=== PATIENT | female | born 1985 | race Caucasian/White ===

== ENCOUNTER 2018-11-23 09:54 | Emergency (ER) | payer OTHER, SELFPAY ==
[2018-11-23 10:19] VITALS: BP 131/77; PULSE 81; RESP 20; TEMP 37; O2SAT 99
--- NOTE | 2018-11-23 10:48 | DI.US.S_ITS ---
PROCEDURE: US PELVIC COMPLETE INDICATIONS: bleeding, cramping TECHNIQUE: Real-time scanning was performed of the pelvic organs, with image documentation. Additional endovaginal scanning was necessary due to incomplete visualization of the adnexal and endometrial structures by transabdominal scanning. COMPARISON: None. FINDINGS: Transabdominal scanning: Limited scanning through the kidneys shows no hydronephrosis. No pathologic free abdominal or pelvic fluid. Endovaginal scanning: Uterus: Uterus is normal in size at 9.3 x 3.7 x 4.7 cm. The endometrium measures 7 mm in combined thickness. Ovaries: The right ovary is enlarged measuring 9.3 x 8.4 x 9.3 cm. Within the right ovary, there is a large simple appearing cyst that measures up to 8.2 cm. The left ovary is only seen transabdominally and measures 3 x 2.4 x 3.1 cm. No significant left ovarian abnormality can be seen. IMPRESSION: Large simple appearing right ovarian cyst that measures up to 8.2 cm. At clinical discretion, a followup pelvic ultrasound is suggested in 6 weeks to assure resolution/ improvement. Note: Concordant preliminary findings given by the bellman driver upon the completion of the examination to Dr. Girard at 11:30 AM [place] time on November 23, 2018. Dictated by: Leonard Winter M.D. on 11/23/2018 at 11:11 Approved by: Leonard Winter M.D. on 11/23/2018 at 11:13
--- NOTE | 2018-11-23 10:51 | ED.FEMALEGU ---
HPI - Female Genitourinary General Chief complaint: Urogenital-Female Stated complaint: VAGINAL BLEEDING Time Seen by Provider: 11/23/18 10:16 Source: patient and family Mode of arrival: ambulatory Limitations: no limitations History of Present Illness HPI Narrative: 33-year-old nonsmoking female presents with her and a chief complaint of heavy vaginal bleeding over the past few days. She has a history of PCOS and has had trouble off and on with vaginal bleeding but never quite this heavy. Patient had her last normal menses on November 01 and it ended on the . She started vaginal bleeding again on November 11 and has not let up. For the past 2 days the bleeding has been intensified and associated with pelvic cramping. She is bleeding through multiple pads and tampons per day. She is not dizzy nor weak or lightheaded. She denies fever or chills. She has had no nausea or vomiting. MD Complaint: vaginal bleeding Onset (ago): week(s) Location: suprapubic Severity: severe Quality: Aching and Cramping Duration: constant Relieving factors: none Exacerbating factors: none Vaginal discharge: blood, dark blood and blood clots Patient : No Related Data Home Medications Medication Instructions Recorded Confirmed metformin 500 mg PO BID 11/23/18 11/23/18 Previous Rx's Medication Instructions Recorded medroxyprogesterone See Label Instructions .ROUTE 11/23/18 .COMPLEX #100 tab Allergies Allergy/AdvReac Type Severity Reaction Status Date / Time No Known Drug Allergies Allergy Verified 11/23/18 10:34 Review of Systems Constitutional Denies chills, Denies fever(s), Denies lethargy and Denies weakness Eyes Denies change in vision, Denies eye discharge, Denies irritation and Denies loss of vision ENT Ears, Nose, Mouth, and Throat: Denies change in voice, Denies neck pain and Denies sore throat Cardiovascular Denies chest pain, Denies irregular heart rhythm, Denies lightheadedness, Denies palpitations, Denies dyspnea, Denies dyspnea on exertion and Denies orthopnea Respiratory Denies cough, Denies dyspnea, Denies dyspnea on exertion and Denies wheezing Gastrointestinal Gastrointestinal: Denies abdominal pain, Denies change in bowel habits, Denies diarrhea, Denies nausea and Denies vomiting Genitourinary Reports abnormal vaginal bleeding, Denies hematuria, Reports pelvic pain, Denies flank pain, Denies urinary incontinence and Denies urinary urgency Musculoskeletal Denies neck pain Integumentary/Breasts Denies pruritus, Denies erythema, Denies rash and Denies wounds Neurologic Denies confusion, Denies loss of vision and Denies weakness Psychiatric Denies anxiety, Denies confusion, Denies depression, Denies homicidal ideation and Denies suicidal ideation Endocrine Denies palpitations Hematologic/Lymphatic Denies easy bruising Allergic/Immunologic Denies wheezing PFSH Medical History PCOS (polycystic ovarian syndrome) (Acute) Social History Smoking Status: Never smoker Exam Narrative Exam Narrative: GENERAL: This is a well-nourished, well-developed patient, in mild distress. HEAD: Atraumatic. Normocephalic. No temporal or scalp tenderness. EYES: Pupils equal round and reactive. Extraocular motions intact. No scleral icterus. No injection or drainage. ENT: Nose without bleeding, purulent drainage or septal hematoma. Throat without erythema, tonsillar hypertrophy or exudate. Uvula midline. Airway patent. NECK: Trachea midline. No JVD or lymphadenopathy. Supple, nontender, no meningeal signs. CARDIOVASCULAR: Regular rate and rhythm without murmurs, gallops, or rubs. RESPIRATORY: Clear to auscultation. Breath sounds equal bilaterally. No wheezes, rales, or rhonchi. GASTROINTESTINAL: Abdomen soft, non-tender, nondistended. No hepato-splenomegaly, or palpable masses. No guarding. PELVIC: dark blood via closed cervical os. Minimal tenderness. Performed with patient's permission and female nursing cardiac cath technologist at bedside EXTREMITIES: No clubbing, cyanosis, or edema. No joint tenderness, effusion, or edema noted. BACK: Nontender without deformity or crepitance. No flank tenderness. NEURO: AOx3. SKIN: No rash or erythema. Initial Vital Signs Initial Vital Signs: Vital Signs Temperature 98.6 F 11/23/18 10:19 Pulse Rate 81 11/23/18 10:19 Respiratory Rate 20 11/23/18 10:19 Blood Pressure 131/77 11/23/18 10:19 Pulse Oximetry 99 11/23/18 10:19 Course Orders Ordered: ED Orders 11/23/18 10:48 US pelvic complete Stat 11/23/18 10:53 Test Urine Stat Urinalysis and Microscopic Stat 11/23/18 10:55 Basic Metabolic Panel Stat Complete Blood Count AUTO DIFF Stat Type and Screen Stat Sodium Chloride (Normal Saline 0.9%) 1,000 mls @ 150 mls/hr IV CONT CESAR Last Admin: 11/23/18 11:30 Dose: 150 mls/hr Consultations Consultation #1: call to OB. She recommends medroxyprogesterone and close follow up with her OB or our clinic to discuss options with ovarian cyst Time: 11:46 Vital Signs - 8 hr 11/23/18 10:19 11/23/18 11:00 Temperature 98.6 F Pulse Rate 81 84 Respiratory Rate 20 16 Blood Pressure [Left Arm] 131/77 130/87 Pulse Oximetry 99 100 MDM - Female Genitourinary Lab Data Attestation: I reviewed the patient's lab results. Result diagrams: 11/23/18 10:55 11/23/18 10:55 Lab Results 11/23/18 11/23/18 11/23/18 Range/Units 10:53 10:55 10:55 WBC 7.8 (4.5-11.0) X10^3/uL RBC 4.97 (4.0-5.2) X10^6/uL Hgb 14.0 (12.0-16.0) g/dL Hct 41.6 (36-46) % MCV 83.7 (80-100) fL MCH 28.2 (26-34) PG MCHC 33.8 (30-36) % RDW 13.6 (11.6-14.8) % Plt Count 348 (150-400) X10^3/uL Neut % (Auto) 63.4 (50-75) % Lymph % (Auto) 28.1 (25-40) % [place] % (Auto) 6.7 (3-14) % Eos % (Auto) 1.2 L (2-4) % Baso % (Auto) 0.6 (0-2) % Neut # (Auto) 5000 (5389-8128) /uL Lymph # (Auto) 2200 (2068-6835) /uL [place] # (Auto) 500 (0-900) /uL Eos # (Auto) 100 (0-450) /uL Baso # (Auto) 0 (0-100) /uL Sodium 141 (137-145) mmol/L Potassium 3.9 (3.4-5.1) mmol/L Chloride 105 (98-107) mmol/L Carbon Dioxide 27 (22-32) mmol/L BUN 8 (7-17) mg/dL Creatinine 0.80 (0.52-1.04) mg/dL Estimated GFR > 60.0 (>60) mL/min BUN/Creatinine Ratio 10.0 (6-22) Glucose 84 (70-100) mg/dL Calcium 9.1 (8.4-10.2) mg/dL Urine Test Negative (Negative) Blood Type Antibody Screen 11/23/18 Range/Units 10:55 WBC (4.5-11.0) X10^3/uL RBC (4.0-5.2) X10^6/uL Hgb (12.0-16.0) g/dL Hct (36-46) % MCV (80-100) fL MCH (26-34) PG MCHC (30-36) % RDW (11.6-14.8) % Plt Count (150-400) X10^3/uL Neut % (Auto) (50-75) % Lymph % (Auto) (25-40) % [place] % (Auto) (3-14) % Eos % (Auto) (2-4) % Baso % (Auto) (0-2) % Neut # (Auto) (9708-5681) /uL Lymph # (Auto) (0472-8133) /uL [place] # (Auto) (0-900) /uL Eos # (Auto) (0-450) /uL Baso # (Auto) (0-100) /uL Sodium (137-145) mmol/L Potassium (3.4-5.1) mmol/L Chloride (98-107) mmol/L Carbon Dioxide (22-32) mmol/L BUN (7-17) mg/dL Creatinine (0.52-1.04) mg/dL Estimated GFR (>60) mL/min BUN/Creatinine Ratio (6-22) Glucose (70-100) mg/dL Calcium (8.4-10.2) mg/dL Urine Test (Negative) Blood Type O Positive Antibody Screen Negative Imaging Data US - abdomen: Radiologist's impression: [address] [address] Ultrasound Report Signed Patient: LAURA RIVERA MR#: [id number] : 1985 Acct:[id number] Age/Sex: 33 / F Date of Service: 11/23/18 Loc: ED Accession Number: [id number] Procedure: US pelvic complete Ordering Provider: Fab Girard D.O. PROCEDURE: US PELVIC COMPLETE INDICATIONS: bleeding, cramping TECHNIQUE: Real-time scanning was performed of the pelvic organs, with image documentation. Additional endovaginal scanning was necessary due to incomplete visualization of the adnexal and endometrial structures by transabdominal scanning. COMPARISON: None. FINDINGS: Transabdominal scanning: Limited scanning through the kidneys shows no hydronephrosis. No pathologic free abdominal or pelvic fluid. Endovaginal scanning: Uterus: Uterus is normal in size at 9.3 x 3.7 x 4.7 cm. The endometrium measures 7 mm in combined thickness. Ovaries: The right ovary is enlarged measuring 9.3 x 8.4 x 9.3 cm. Within the right ovary, there is a large simple appearing cyst that measures up to 8.2 cm. The left ovary is only seen transabdominally and measures 3 x 2.4 x 3.1 cm. No significant left ovarian abnormality can be seen. IMPRESSION: Large simple appearing right ovarian cyst that measures up to 8.2 cm. At clinical discretion, a followup pelvic ultrasound is suggested in 6 weeks to assure resolution/ improvement. Note: Concordant preliminary findings given by the fulfillment coordinator upon the completion of the examination to Dr. Girard at 11:30 AM [place] time on November 23, 2018. Dictated by: Leonard Winter M.D. on 11/23/2018 at 11:11 Approved by: Leonard Winter M.D. on 11/23/2018 at 11:13 Discharge Plan Departure Patient Disposition: Home Clinical Impression: Menometrorrhagia, Dysmenorrhea Instructions: Heavy Menstrual Bleeding Activity Restrictions/Additional Instructions: *You have been diagnosed with [ heavy painful vaginal bleeding, ovarian cyst ] *What to do: *Take medications as directed *Follow up with your primary care provider in 2-3 days, call for an appointment. Let them know you were seen in the Emergency Department and that we ask that you be seen in follow up. I have also included contact information for our hospice manager should she wish to go that route. Either your doctor or Dr. Johns need to talk with you about your ovarian cyst an options you have moving forward *Return to ER if you should have any new, worsening or concerning symptoms Prescriptions: New medroxyprogesterone 10 mg tablet See Label Instructions .ROUTE .COMPLEX Qty: 100 RF: 0 No Action metformin 500 mg Tablet 500 mg PO BID RF: 0 Referrals: Yue Johns MD [Physician] - Marcy Malagon FNP-JOY [Primary Care Provider] -
[2018-11-23 11:00] VITALS: BP 130/87; PULSE 84; RESP 16; O2SAT 100
[2018-11-23 11:09] LABS: Add Manual Diff / Slide Review NO; Basophils Absolute Auto 0 /uL (0-100); Basophils Percent Auto 0.6 % (0-2); Eosinophils Absolute Auto 100 /uL (0-450); Lymphocytes Absolute Auto 2200 /uL (1100-4500); Mean Corpuscular Hemoglobin 28.2 PG (26-34); Monocytes Absolute Auto 500 /uL (0-900); White Blood Cell Count 7.8 X10^3/uL (4.5-11.0)
--- NOTE | 2018-11-23 11:11 | ED_ITS ---
HPI - Female Genitourinary General Chief complaint: Urogenital-Female Stated complaint: VAGINAL BLEEDING Time Seen by Provider: 11/23/18 10:16 Source: patient and family Mode of arrival: ambulatory Limitations: no limitations History of Present Illness HPI Narrative: 33-year-old nonsmoking female presents with her and a chief complaint of heavy vaginal bleeding over the past few days. She has a history of PCOS and has had trouble off and on with vaginal bleeding but never quite this heavy. Patient had her last normal menses on November 01 and it ended on the . She started vaginal bleeding again on November 11 and has not let up. For the past 2 days the bleeding has been intensified and associated with pelvic cramping. She is bleeding through multiple pads and tampons per day. She is not dizzy nor weak or lightheaded. She denies fever or chills. She has had no nausea or vomiting. MD Complaint: vaginal bleeding Onset (ago): week(s) Location: suprapubic Severity: severe Quality: Aching and Cramping Duration: constant Relieving factors: none Exacerbating factors: none Vaginal discharge: blood, dark blood and blood clots Patient : No Related Data Home Medications Medication Instructions Recorded Confirmed metformin 500 mg PO BID 11/23/18 11/23/18 Previous Rx's Medication Instructions Recorded medroxyprogesterone See Label Instructions .ROUTE 11/23/18 .COMPLEX #100 tab Allergies Allergy/AdvReac Type Severity Reaction Status Date / Time No Known Drug Allergies Allergy Verified 11/23/18 10:34 Review of Systems Constitutional Denies chills, Denies fever(s), Denies lethargy and Denies weakness Eyes Denies change in vision, Denies eye discharge, Denies irritation and Denies loss of vision ENT Ears, Nose, Mouth, and Throat: Denies change in voice, Denies neck pain and Denies sore throat Cardiovascular Denies chest pain, Denies irregular heart rhythm, Denies lightheadedness, Denies palpitations, Denies dyspnea, Denies dyspnea on exertion and Denies orthopnea Respiratory Denies cough, Denies dyspnea, Denies dyspnea on exertion and Denies wheezing Gastrointestinal Gastrointestinal: Denies abdominal pain, Denies change in bowel habits, Denies diarrhea, Denies nausea and Denies vomiting Genitourinary Reports abnormal vaginal bleeding, Denies hematuria, Reports pelvic pain, Denies flank pain, Denies urinary incontinence and Denies urinary urgency Musculoskeletal Denies neck pain Integumentary/Breasts Denies pruritus, Denies erythema, Denies rash and Denies wounds Neurologic Denies confusion, Denies loss of vision and Denies weakness Psychiatric Denies anxiety, Denies confusion, Denies depression, Denies homicidal ideation and Denies suicidal ideation Endocrine Denies palpitations Hematologic/Lymphatic Denies easy bruising Allergic/Immunologic Denies wheezing PFSH Medical History PCOS (polycystic ovarian syndrome) (Acute) Social History Smoking Status: Never smoker Exam Narrative Exam Narrative: GENERAL: This is a well-nourished, well-developed patient, in mild distress. HEAD: Atraumatic. Normocephalic. No temporal or scalp tenderness. EYES: Pupils equal round and reactive. Extraocular motions intact. No scleral icterus. No injection or drainage. ENT: Nose without bleeding, purulent drainage or septal hematoma. Throat without erythema, tonsillar hypertrophy or exudate. Uvula midline. Airway patent. NECK: Trachea midline. No JVD or lymphadenopathy. Supple, nontender, no meningeal signs. CARDIOVASCULAR: Regular rate and rhythm without murmurs, gallops, or rubs. RESPIRATORY: Clear to auscultation. Breath sounds equal bilaterally. No wheezes , rales, or rhonchi. GASTROINTESTINAL: Abdomen soft, non-tender, nondistended. No hepato-splenomegaly , or palpable masses. No guarding. PELVIC: dark blood via closed cervical os. Minimal tenderness. Performed with patient's permission and female nursing supervisor policy change clerks at bedside EXTREMITIES: No clubbing, cyanosis, or edema. No joint tenderness, effusion, or edema noted. BACK: Nontender without deformity or crepitance. No flank tenderness. NEURO: AOx3. SKIN: No rash or erythema. Initial Vital Signs Initial Vital Signs: Vital Signs Temperature 98.6 F 11/23/18 10:19 Pulse Rate 81 11/23/18 10:19 Respiratory Rate 20 11/23/18 10:19 Blood Pressure 131/77 11/23/18 10:19 Pulse Oximetry 99 11/23/18 10:19 Course Orders Ordered: ED Orders 11/23/18 10:48 US pelvic complete Stat 11/23/18 10:53 Test Urine Stat Urinalysis and Microscopic Stat 11/23/18 10:55 Basic Metabolic Panel Stat Complete Blood Count AUTO DIFF Stat Type and Screen Stat Sodium Chloride (Normal Saline 0.9%) 1,000 mls @ 150 mls/hr IV CONT CESAR Last Admin: 11/23/18 11:30 Dose: 150 mls/hr Consultations Consultation #1: call to OB. She recommends medroxyprogesterone and close follow up with her OB or our clinic to discuss options with ovarian cyst Time: 11:46 Vital Signs - 8 hr 11/23/18 10:19 11/23/18 11:00 Temperature 98.6 F Pulse Rate 81 84 Respiratory Rate 20 16 Blood Pressure [Left Arm] 131/77 130/87 Pulse Oximetry 99 100 MDM - Female Genitourinary Lab Data Attestation: I reviewed the patient's lab results. Result diagrams: 11/23/18 10:55 11/23/18 10:55 Lab Results 11/23/18 11/23/18 11/23/18 Range/Units 10:53 10:55 10:55 WBC 7.8 (4.5-11.0) X10^3/uL RBC 4.97 (4.0-5.2) X10^6/uL Hgb 14.0 (12.0-16.0) g/dL Hct 41.6 (36-46) % MCV 83.7 (80-100) fL MCH 28.2 (26-34) PG MCHC 33.8 (30-36) % RDW 13.6 (11.6-14.8) % Plt Count 348 (150-400) X10^3/uL Neut % (Auto) 63.4 (50-75) % Lymph % (Auto) 28.1 (25-40) % [place] % (Auto) 6.7 (3-14) % Eos % (Auto) 1.2 L (2-4) % Baso % (Auto) 0.6 (0-2) % Neut # (Auto) 5000 (3740-0445) /uL Lymph # (Auto) 2200 (2135-8568) /uL [place] # (Auto) 500 (0-900) /uL Eos # (Auto) 100 (0-450) /uL Baso # (Auto) 0 (0-100) /uL Sodium 141 (137-145) mmol/L Potassium 3.9 (3.4-5.1) mmol/L Chloride 105 (98-107) mmol/L Carbon Dioxide 27 (22-32) mmol/L BUN 8 (7-17) mg/dL Creatinine 0.80 (0.52-1.04) mg/dL Estimated GFR > 60.0 (>60) mL/min BUN/Creatinine Ratio 10.0 (6-22) Glucose 84 (70-100) mg/dL Calcium 9.1 (8.4-10.2) mg/dL Urine Test Negative (Negative) Blood Type Antibody Screen 11/23/18 Range/Units 10:55 WBC (4.5-11.0) X10^3/uL RBC (4.0-5.2) X10^6/uL Hgb (12.0-16.0) g/dL Hct (36-46) % MCV (80-100) fL MCH (26-34) PG MCHC (30-36) % RDW (11.6-14.8) % Plt Count (150-400) X10^3/uL Neut % (Auto) (50-75) % Lymph % (Auto) (25-40) % [place] % (Auto) (3-14) % Eos % (Auto) (2-4) % Baso % (Auto) (0-2) % Neut # (Auto) (9096-7788) /uL Lymph # (Auto) (1259-2852) /uL [place] # (Auto) (0-900) /uL Eos # (Auto) (0-450) /uL Baso # (Auto) (0-100) /uL Sodium (137-145) mmol/L Potassium (3.4-5.1) mmol/L Chloride (98-107) mmol/L Carbon Dioxide (22-32) mmol/L BUN (7-17) mg/dL Creatinine (0.52-1.04) mg/dL Estimated GFR (>60) mL/min BUN/Creatinine Ratio (6-22) Glucose (70-100) mg/dL Calcium (8.4-10.2) mg/dL Urine Test (Negative) Blood Type O Positive Antibody Screen Negative Imaging Data US - abdomen: Radiologist's impression: [address] [address] Ultrasound Report Signed Patient: LAURA RVIERA MR#: [id number] : 1985 Acct:[id number] Age/Sex: 33 / F Date of Service: 11/23/18 Loc: ED Accession Number: [id number] Procedure: US pelvic complete Ordering Provider: Fab Girard D.O. PROCEDURE: US PELVIC COMPLETE INDICATIONS: bleeding, cramping TECHNIQUE: Real-time scanning was performed of the pelvic organs, with image documentation. Additional endovaginal scanning was necessary due to incomplete visualization of the adnexal and endometrial structures by transabdominal scanning. COMPARISON: None. FINDINGS: Transabdominal scanning: Limited scanning through the kidneys shows no hydronephrosis. No pathologic free abdominal or pelvic fluid. Endovaginal scanning: Uterus: Uterus is normal in size at 9.3 x 3.7 x 4.7 cm. The endometrium measures 7 mm in combined thickness. Ovaries: The right ovary is enlarged measuring 9.3 x 8.4 x 9.3 cm. Within the right ovary, there is a large simple appearing cyst that measures up to 8.2 cm. The left ovary is only seen transabdominally and measures 3 x 2.4 x 3.1 cm. No significant left ovarian abnormality can be seen. IMPRESSION: Large simple appearing right ovarian cyst that measures up to 8.2 cm. At clinical discretion, a followup pelvic ultrasound is suggested in 6 weeks to assure resolution/ improvement. Note: Concordant preliminary findings given by the bag shaker upon the completion of the examination to Dr. Girard at 11:30 AM [place] time on November 23, 2018. Dictated by: Leonard Winter M.D. on 11/23/2018 at 11:11 Approved by: Leonard Winter M.D. on 11/23/2018 at 11:13 Discharge Plan Departure Patient Disposition: Home Clinical Impression: Menometrorrhagia, Dysmenorrhea Instructions: Heavy Menstrual Bleeding Activity Restrictions/Additional Instructions: *You have been diagnosed with [ heavy painful vaginal bleeding, ovarian cyst ] *What to do: *Take medications as directed *Follow up with your primary care provider in 2-3 days, call for an appointment. Let them know you were seen in the Emergency Department and that we ask that you be seen in follow up. I have also included contact information for our transport tech should she wish to go that route. Either your doctor or Dr. Johns need to talk with you about your ovarian cyst an options you have moving forward *Return to ER if you should have any new, worsening or concerning symptoms Prescriptions: New medroxyprogesterone 10 mg tablet See Label Instructions .ROUTE .COMPLEX Qty: 100 RF: 0 No Action metformin 500 mg Tablet 500 mg PO BID RF: 0 Referrals: Yue Johns MD [Physician] - Marcy Malagon FNP-JOY [Primary Care Provider] -
[2018-11-23 11:22] LABS: Blood Urea Nitrogen 8 mg/dL (7-17); Calcium 9.1 mg/dL (8.4-10.2); Carbon Dioxide 27 mmol/L (22-32); Chloride 105 mmol/L (98-107); Estimated Glomerular Filt Rate > 60.0 mL/min (>60); Glucose 84 mg/dL (70-100); HEMOLYSIS < 15 (0-50); Potassium 3.9 mmol/L (3.4-5.1); Sodium 141 mmol/L (137-145)
[2018-11-23 11:30] LABS: Pregnancy Test Urine Negative (Negative)
[2018-11-23] MEDS: SODIUM CHLORIDE 0.9% 1,000 ML 150 ML IV (11:30)
[2018-11-23 11:59] LABS: Appearance Urine UA CLEAR; Bilirubin Urine UA NEGATIVE (NEGATIVE); Glucose Urine UA NEGATIVE (Negative); Ketones Urine UA NEGATIVE (NEGATIVE); Leukocyte Esterase Urine UA NEGATIVE (NEGATIVE); Nitrite Urine UA NEGATIVE (Negative); Occult Blood Urine UA 3+ (Negative); Protein Urine UA TRACE (Negative); Urobilinogen Urine UA 0.2 E.U./dL (0.2); pH Urine UA 7.5 (4.5-8.0)
[2018-11-23 12:34] LABS: Eosinophils Percent Auto 1.2 % (2-4); Hematocrit 41.6 % (36-46); Lymphocytes Percent Auto 28.1 % (25-40); Mean Corpuscular HGB Conc 33.8 % (30-36); Mean Corpuscular Volume 83.7 fL (80-100); Monocytes Percent Auto 6.7 % (3-14); Neutrophils Absolute Auto 5000 /uL (1500-7000); Neutrophils Percent Auto 63.4 % (50-75); Platelet Count 348 X10^3/uL (150-400); Red Blood Cell Count 4.97 X10^6/uL (4.0-5.2); Red Cell Distribution Width 13.6 % (11.6-14.8)
[2018-11-23 12:35] VITALS: BP 119/87; PULSE 79; RESP 16; O2SAT 99
[2018-11-23 12:37] LABS: Color Urine UA PINK
[2018-11-23 12:38] LABS: Bacteria Urine Few (2-10); Culture Indicated Urine Cult Not Indicated; RBC Urine 30-100/HPF (0-5/HPF); WBC Urine 0-1/HPF (0-5/HPF)
== END 2018-11-23 12:59 | disposition home or self-care (01) ==
PROVIDERS: Emergency Provider Emergency Medicine; PCP Nurse Practitioner Family
DX: N92.1 Excessive and frequent menstruation with irregular cycle (principal)
CPT/HCPCS: 36591; 76830; 76856; 80048; 81001; 81025; 85025; 86850; 86900; 86901; 96360; 99283; 99284